=== PATIENT | female | born 1955 | race Caucasian/White ===

== ENCOUNTER → 2016-12-13 | Day surgery (SDC) | payer BC ==
[2016-12-08 10:59] VITALS: Ht 162.6 cm; Wt 86.8 kg
[~2016-12-13] VITALS: Ht 162.6 cm; Wt 86.8 kg
[~2016-12-13] MED LIST: ATOR-26 PO; CYCL-259 PO; DICY10CA55 PO; FLUT50SP45 NAE; HYDCR25 TOP; IBUP-1050 PO; LISI20TA3 PO; METO25TA3 PO; NTRGSL/4 UT; NUTRTAB40 PO; PRLSR20 PO; PROPOFOL IV EMULSION 10 MG/ML 20 ML VIAL IV ONE; SODIUM CHLORIDE 0.9% 500ML 500 ML IV ONE; TOLT1TAB6 PO; VALA1TAB2 PO; [UNRECOGNIZED DRUG - CODE] TOP
[2016-12-13 12:27] VITALS: TEMP 36.7
--- NOTE | 2016-12-13 12:27 | Endo History and Physical ---
History & Physical Date of Service: Dec 13, 2016. Chief Complaint: Referring Physician: History of Present Illness diarrhea Past Surgical History Hx Cardiac Surgery: Yes (HEART CATH, NO STENTS) Hx Internal Defibrillator: No Hx Pacemaker: No Hx Abdominal Surgery: Yes (TUBAL LIGATION) Hx of Implantable Prosthesis: No Hx Post-Op Nausea and Vomiting: No Hx Cancer Surgery: No Hx Thoracic Surgery: No Hx Orthopedic: No Hx Urinary Tract Surgery: No Family History Polyp Social History Smoking Status: Never Smoker Hx Substance Use: No Hx Alcohol Use: No Allergies Coded Allergies: Rosuvastatin (Verified Allergy, Unknown, MUSCLE ACHES, 12/13/16) Simvastatin (Verified Allergy, Unknown, MUSCLE ACHES, 12/13/16) Current Medications Reported Home Medications Medications Dose Route/Sig Max Daily Dose Days Date Category Dose Instructions [place] (Nutritional Supplements) 1 Tab Tab 1 Tab PO LUNCH 12/08/16 Reported Nitrostat (Nitroglycerin) 0.4 Mg Tab 0.4 Mg UT UD PRN 12/08/16 Reported Allergy Nasal [place] 24 Ho (Fluticasone Propionate (Nasal)) 50 Mcg/Act Spr 2 [place] ZANE HS 12/08/16 Reported Lipitor (Atorvastatin Calcium) 80 Mg Tab 80 Mg PO QPM 12/08/16 Reported Valtrex (Valacyclovir Hcl) 1 Gm Tab 1,000 Mg PO UD PRN 12/08/16 Reported Bentyl (Dicyclomine Hcl) 10 Mg Cap 10 Mg PO TID 12/08/16 Reported Estradiol Concentrate (Estradiol (Bulk)) 10 % Cre 1 Dose TOP UD 12/08/16 Reported PT HAS NOT STARTED THIS NEW PRESCIPTION Tolterodine Tartrate 1 Mg Tab 1 Tab PO BID 12/08/16 Reported Hydrocortisone 90 Appln/30 Gm Cr 1 Appln TOP TID 12/08/16 Reported Prinivil (Lisinopril) 20 Mg Tab 20 Mg PO QAM 12/08/16 Reported Flexeril (Cyclobenzaprine Hcl) 10 Mg Tab 10 Mg PO TID PRN 08/09/11 Reported PRN Toprol-Xl (Metoprolol Succinate) 25 Mg Tabcr 25 Mg PO QAM 08/09/11 Reported Advil (Ibuprofen) 200 Mg Tab 400 Mg PO Q4-6H PRN 08/09/11 Reported Prilosec (Omeprazole) 20 Mg Capcr 2 Tabs PO QAM 09/03/10 Reported Vital Signs Weight (Kilograms): 86.82 Height (Feet): 5 Height (Inches): 4 Physical Exam General Appearance: no apparent distress Respiratory/Chest: Auscultation: breath sounds normal Cardiovascular: Heart Auscultation: RRR Abdomen: Inspection & Palpation: soft Liver: non-tender Assessment and Plan stable for colonoscopy
--- NOTE | 2016-12-13 13:20 | Discharge Instructions ---
Endoscopy Patient Instructions Date / Procedure(s) Performed Dec 13, 2016. Colonoscopy Allergy Information Coded Allergies: Rosuvastatin (Verified Allergy, Unknown, MUSCLE ACHES, 12/13/16) Simvastatin (Verified Allergy, Unknown, MUSCLE ACHES, 12/13/16) Discharge Date / Findings Dec 13, 2016. normal study Provider Instructions Activity Restrictions - No exercising or heavy lifting for 24 hours. - Do not drink alcohol the day of the procedure. - Do not drive a car or operate machinery until the day after the procedure. - Do not make any important decisions or sign important papers in 24 hours after the procedure. Following Day: - Return to full activity which may include returning to work/school. Diet Start your diet with liquids and light foods (jello, soup, juice, toast). Then eat your usual diet if not nauseated. Treatment For Common After Affects For mild abdominal pain, bloating, or excessive gas: - Rest - Eat lightly - Lie on right side Follow-Up Information Follow-up with BOB KIM as scheduled Anesthesia Information What You Should Know You have had a procedure that required some medicine to reduce anxiety and discomfort. This treatment is called moderate sedation. After receiving the treatment, you may be sleepy, but you will be able to breathe on your own. The effects of the treatment may last for several hours. Follow these instructions along with Activity/Diet recommendations noted above: * Do NOT do anything where dizziness or clumsiness would be dangerous. * Rest quietly at home today, then you can be up and about tomorrow. * Have a responsible person stay with you the rest of today. * You may have had an I.V. today. If so, you may take the dressing off later today. Recommendations Call your doctor if: * Trouble breathing * Continuous vomiting for more than 24 hours * Temperature above 101 degrees * Severe abdominal pain or bloating * Pain not relieved by pain medicine ordered * There is increased drainage or redness from any incision * A large amount of rectal bleeding greater than 2-3 tablespoons. (If you had a polyp/s removed or have hemorrhoids, a small amount of blood - from the rectum is to be expected.) * You have any unanswered questions or concerns. IN THE EVENT OF A SERIOUS EMERGENCY, GO TO THE NEAREST EMERGENCY ROOM Your discharge instructions were prepared by provider Thad Martino. Patient Instructions Signature Page Edna Viveros Patient (or Guardian) Signature/Date: I have read and understand the instructions given to me by my caregivers. Caregiver/RN/Doctor Signature/Date: The above-named patient and/or guardian has received patient instructions on this date. + Original Patient Signature Page (only) stays with chart. Please make copy for patient.
--- NOTE | 2016-12-13 13:22 | GI REPORT ---
Procedure Date: 12/13/2016 12:29 PM Procedure: Colonoscopy Indications: Chronic diarrhea Medicines: See the Anesthesia note for documentation of the administered medications Complications: No immediate complications. Estimated Blood Loss: Estimated blood loss was minimal. Procedure: Pre-Anesthesia Assessment: - Prior to the procedure, a History and Physical was performed, and patient medications, allergies and sensitivities were reviewed. The patient's tolerance of previous anesthesia was reviewed. - The risks and benefits of the procedure and the sedation options and risks were discussed with the patient. All questions were answered and informed consent was obtained. - Patient identification and proposed procedure were verified prior to the procedure by the physician and the nurse. The procedure was verified in the pre-procedure area. - Pre-procedure physical examination revealed no contraindications to sedation. - After reviewing the risks and benefits, the patient was deemed in satisfactory condition to undergo the procedure. After I obtained informed consent, the scope was passed under direct vision. Throughout the procedure, the patient's blood pressure, pulse, and oxygen saturations were monitored continuously. The Scope was introduced through the anus and advanced to the terminal ileum, with identification of the appendiceal orifice and IC valve. The colonoscopy was performed without difficulty. The patient tolerated the procedure well. The quality of the bowel preparation was good. Findings: The perianal and digital rectal examinations were normal. The terminal ileum appeared normal. The colonic mucosa appeared normal. Biopsies for histology were taken with a cold forceps from the entire colon for evaluation of microscopic colitis. Verification of patient identification for the specimen was done by the physician and nurse using the patient's name and medical record number. Estimated blood loss was minimal. No additional abnormalities were found on retroflexion. Impression: - The examined portion of the ileum was normal. - The entire examined colon is normal. Biopsied. - No evidence of IBD. Recommendation: - Await pathology results. - Discharge patient to home. Thad Martino M.D. Thad Martino MD 12/13/2016 1:22:15 PM This report has been signed electronically. Note Initiated On: 12/13/2016 12:29 PM I attest to the content of the Intraoperative Record and orders documented therein, exceptions below
[2016-12-13 13:43] VITALS: BP 142/85; PULSE 67; O2SAT 98
--- NOTE | 2016-12-13 14:39 | Anesthesiology Progress Note ---
Anesthesia Post Op Note Date & Time Dec 13, 2016 at 14:39 Vital Signs Pain Intensity: 0 Vital Signs Past 12 Hours Date Time Temp Pulse Resp B/P (MAP) Pulse Ox O2 Delivery O2 Flow Rate FiO2 12/13/16 13:43 67 18 142/85 (104) 98 Room Air 12/13/16 13:28 66 16 123/84 (97) 97 Room Air 12/13/16 13:13 71 16 91/66 (74) 98 Room Air 12/13/16 12:27 36.7 73 20 134/75 (94) 98 Room Air Notes Mental Status: alert / awake / arousable, participated in evaluation Pt Amnestic to Procedure: Yes Nausea / Vomiting: adequately controlled Pain: adequately controlled Airway Patency, RR, SpO2: stable & adequate BP & HR: stable & adequate Hydration State: stable & adequate Anesthetic Complications: no major complications apparent
== END | disposition home or self-care (01) ==
LOC: C.GI 11:43
PROVIDERS: ATTEND Internal Medicine Gastroenterology
DX: K52.9 Noninfective gastroenteritis and colitis, unspecified (principal); Z83.79 Family history of other diseases of the digestive system